=== PATIENT | female | born 2000 | race Caucasian/White ===

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

== ENCOUNTER → 2021-12-15 | Outpatient (CLI) | payer OTHER ==
[~2021-12-15] MED LIST changes: +IBUP1TAB5 PO; -IBUP40TA PO; -MOME50SP; +NASO50SP3
== END ==
LOC: M PLARAD 13:25
PROVIDERS: ATTEND Physician Assistant
DX: R51.9 Headache, unspecified (principal); G89.29 Other chronic pain; R42 Dizziness and giddiness

== ENCOUNTER → 2022-09-07 | Outpatient (CLI) | payer OTHER | LOC: M WHC 10:31 | PROVIDERS: ATTEND Physician Assistant | DX: R10.2 Pelvic and perineal pain (principal) ==

== ENCOUNTER → 2022-11-14 | Outpatient (CLI) | payer OTHER ==
[2022-11-14 18:33] LABS: ALBUMIN 4.2 G/DL (3.2-5.2); ALKALINE PHOSPHATASE 69 U/L (46-116); ALT/SGPT 13 U/L (7.0-40); AST/SGOT 22 U/L (<34); BILIRUBIN,TOTAL 0.4 MG/DL (0.3-1.2); BLOOD UREA NITROGEN 8 MG/DL (9-23); CALCIUM LEVEL 9.2 MG/DL (8.5-10.1); CARBON DIOXIDE LEVEL 28 MMOL/L (20-31); CHLORIDE LEVEL 105 MMOL/L (98-107); CREATININE FOR GFR 0.79 MG/DL (0.55-1.30); GLOMERULAR FILTRATION RATE > 60.0 (>60); GLUCOSE, FASTING 67 MG/DL (60-100); POTASSIUM SERUM 4.5 MMOL/L (3.5-5.1); SODIUM LEVEL 140 MMOL/L (136-145); TOTAL PROTEIN 6.7 G/DL (5.7-8.2)
[2022-11-14 18:37] LABS: THYROID STIMULATING HORMONE 1.528 uIU/ML (0.55-4.78)
[2022-11-14 18:38] LABS: FOLLICLE STIMULATING HORMONE 5.3 mIU/ML; TESTOSTERONE 31 NG/DL (14-76)
[2022-11-14 18:39] LABS: FREE T4 1.01 NG/DL (0.89-1.76); LUTEINIZING HORMONE 4.8 mIU/ML
[2022-11-14 18:41] LABS: BASO # 0.1 10^3/uL (0.0-0.2); BASO % 0.5 % (0.0-1.0); EOS # 0.1 10^3/uL (0.0-0.5); EOS % 0.7 % (0.0-3.0); HEMATOCRIT 41.6 % (36.0-47.0); HEMOGLOBIN 13.3 g/dl (12.0-15.5); LYMPH # 3.4 10^3/uL (1.5-5.0); LYMPH % 35.6 % (24.0-44.0); MEAN CORPUSCULAR HEMOGLOBIN 27.1 pg (27.0-33.0); MEAN CORPUSCULAR VOLUME 84.9 fl (80.0-96.0); MONO # 0.5 10^3/uL (0.0-0.8); MONO % 5.4 % (2.0-8.0); NEUTROPHILS # 5.4 10^3/uL (1.5-8.5); NEUTROPHILS % 57.5 % (36.0-66.0); PLATELET COUNT, AUTOMATED 294 10^3/uL (150-450); WHITE BLOOD COUNT 9.4 10^3/uL (4.0-10.0)
== END ==
LOC: M PLALAB 15:22
PROVIDERS: ATTEND Physician Assistant
DX: R10.2 Pelvic and perineal pain (principal); E66.01 Morbid (severe) obesity due to excess calories

== ENCOUNTER → 2023-05-08 | Outpatient (CLI) | payer OTHER | LOC: M PLAIMG 11:30 | PROVIDERS: ATTEND Physician Assistant | DX: M25.532 Pain in left wrist (principal); M79.642 Pain in left hand ==

== ENCOUNTER → 2023-06-12 | Outpatient (CLI) | payer OTHER | LOC: M SOG 14:55 | PROVIDERS: ATTEND Physician Assistant | DX: M25.532 Pain in left wrist (principal) ==

== ENCOUNTER → 2023-08-31 | Outpatient (CLI) | payer OTHER | LOC: M RAD 10:57 | PROVIDERS: ATTEND Physician Assistant | DX: M25.532 Pain in left wrist (principal) ==